=== PATIENT | female | born 1975 | race Caucasian/White ===

== ENCOUNTER 2017-04-14 18:36 | Emergency (ER) | payer BC ==
[2017-04-14 18:47] VITALS: BP 143/80
--- NOTE | 2017-04-14 19:06 | RAD ---
INDICATION: Right hand injury COMPARISON: None TECHNIQUE: AP, lateral, and oblique views were obtained. FINDINGS: There is no acute fracture or dislocation. There is prominent soft tissue swelling over the dorsum of the hand. IMPRESSION: SOFT TISSUE SWELLING.
[2017-04-14] MEDS ORDERED: Ibuprofen TAB* 600 MG PO ONE (19:15)
--- NOTE | 2017-04-14 19:37 | UC ---
Erica Culp Rebecca, scribed for Sharron Pelletier MD on 04/14/17 at 1907 . Upper Extremity HPI - HPI Summary HPI Summary: Pt is a 42 y/o F who presents to [facility] c/o R hand pain and swelling. At 1400 today she "got really upset" and punched a "really hard wood door." Pain began immediately after injury and has been constant since onset. Did not apply ice BALL WINDER. Pain is currently severe, ranked 8/10. Sx aggravated by movement and alleviated by nothing, unchanged by Tylenol. Denies elbow or shoulder pain. Dominant right hand. No h/o hand fractures. no open wounds. - History of Current Complaint Chief Complaint: UCUpperExtremity Stated Complaint: HAND INJURY Time Seen by Provider: 04/14/17 18:46 Hx Obtained From: Patient Hx Last Menstrual Period: 2 wks ago Onset/Duration: Lasting Hours, Still Present Severity Currently: Severe Pain Intensity: 8 Pain Scale Used: 0-10 Numeric Location Of Pain: Is Discrete @ - R hand Aggravating Factor(s): Movement Alleviating Factor(s): Nothing Associated Signs And Symptoms: Positive: Swelling - R hand swelling Related History: Dominant Hand Right - Allergies/Home Medications Allergies/Adverse Reactions: Allergies Allergy/AdvReac Type Severity Reaction Status Date / Time Nalbuphine [From Nubain] Allergy Vomiting Verified 04/14/17 18:47 ENVIROMENTAL Allergy Intermediate SNEEZING, Uncoded 04/14/17 18:47 WATERY EYES. PMH/Surg Hx/FS Hx/Imm Hx - Additional Past Medical History Additional PMH: No PMHx DM, CAD. Previously Healthy: Yes Psychological History: Anxiety, Depression, Other - chronic pain Other Psychological History: depression - Surgical History Surgical History: Yes Surgery Procedure, Year, and Place: . ganglion cyst on wrist. 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 Lives: With Family Alcohol Use: None Substance Use Type: Prescribed Smoking Status (MU): Former Smoker When Did the Patient Quit Smoking/Using Tobacco: 10 years ago Review of Systems Constitutional: Negative Skin: Negative Eyes: Negative ENT: Negative Respiratory: Negative Cardiovascular: Negative Gastrointestinal: Negative Genitourinary: Negative Motor: Negative Neurovascular: Negative Musculoskeletal: Arthralgia - R hand pain and swelling; NEGATIVE: elbow or shoulder pain Neurological: Negative Psychological: Negative All Other Systems Reviewed And Are Negative: Yes Physical Exam Triage Information Reviewed: Yes Appearance: Well-Appearing, Pain Distress - holding right hand, obvious discomfort Vital Signs: Initial Vital Signs Temp 97.8 F 04/14/17 18:43 Pulse 87 04/14/17 18:43 Resp 18 04/14/17 18:43 BP 143/80 04/14/17 18:43 Pulse Ox 99 04/14/17 18:43 Eye Exam: Normal ENT: Positive: Hearing grossly normal Neck exam: Normal Neck: Positive: Supple, Nontender Respiratory Exam: Normal Respiratory: Positive: Normal breath sounds, No respiratory distress, No accessory muscle use Cardiovascular: Positive: Other: - 2+ radial, 2+ ulna CBT <2 sec Musculoskeletal: Positive: Other: - + abduct, extend right shoulder + flex/ext elbow, + supinate/supinate + flex/ext wrist with pain in right dorsum hand + TTP along 4/5 MC - no crepitus + movement of fingers with pain in dorsum hand no crepitus significant edema, ecchymosis dorsum right hand along MC and small area ecchymosis palmar aspect right hand base of 4th Neurological: Positive: Other: - + gross sensaiton throughout fingers Psychological Exam: Normal Psychological: Positive: Normal Response To Family Skin: Positive: Other Procedures - Splinting Location: R hand Hand-Made Type: orthoglass Splint: volar - with a sling given Pre-Proc Neuro Vasc Exam: normal Post-Proc Neuro Vasc Exam: normal, unchanged from pre-exam Diagnostics - Radiology R Hand XR Xray Interpretation: No Acute Changes - SOFT TISSUE SWELLING. Radiology Interpretation Completed By: Radiologist Upper Extremity Course/Dx - Course Course Of Treatment: Pt with pain along dorsum right hand with ecchymosis and edema s/p punch injury. No fx on imaging. placed in volar splint for support. sling. ice. motrin/apap. tramadol (istop consulted_. hand f/u. work note - Differential Dx/Diagnosis Provider Diagnoses: right hand contusion Discharge - Discharge Plan Condition: Stable Disposition: HOME Prescriptions: RX: traMADol TAB* [Ultram*] 50 mg PO BID #10 tab MDD 2 Patient Education Materials: Contusion in Adults (ED) Forms: *Work Release Referrals: Himanshu Freeman MD [Medical Doctor] - Non Staff,Doctor [Primary Care Provider] - Additional Instructions: - Wear splint for comfort and support - elevate your hand to help with swelling and pain - apply ice (wrapped in a towel) 20 minutes at a time, 2-3 times a day - Okay to alternate ibuprofen (advil, motrin) and tylenol every 3 hours for pain. take with food. Okay to take Tramadol for severe pain - Tomorrow, Contact Dr. Freeman, hand surgeon, to schedule a follow-up appointment. The documentation as recorded by the Erica rhodes Rebecca accurately reflects the service I personally performed and the decisions made by , Sharron Pelletier MD.
== END 2017-04-14 19:40 | disposition home or self-care (01) ==
LOC: UCEAST 18:36
DX: S60.221A Contusion of right hand, initial encounter (principal); F32.9 Major depressive disorder, single episode, unspecified; Z87.891 Personal history of nicotine dependence; W22.8XXA Striking against or struck by other objects, initial encounter; Y92.9 Unspecified place or not applicable
CPT/HCPCS: 12053; 99213; A9270-GY; G0463

== ENCOUNTER 2018-07-17 08:32 | Day surgery (SDC) | payer BC, OTHER ==
[~2018-07-17 08:32] MED LIST: Buffered Lidocaine 0.9% SYRIN* 5 ML/SYR SYRINGE INTRADERM ONE; Famotidine IV* 10 MG/ML 2 ML (20 mg) IV ONE; Famotidine IV* 10 MG/ML 2 ML (20 mg) ONE; Morphine VIAL* 10 MG/ML 1 ML VIAL ONE; ceFAZolin 2 GM PREMIX in ORs 2 GM/50 ML BAG IVPB ONE
[2018-07-17] MEDS ORDERED: Bupivacaine 0.5% SDV PF* 30ML VIAL ONE (08:45)
[2018-07-17] MEDS ORDERED: Lidocaine 1% INJ* 10 MG/ML 30 ML SDV ONE (08:45)
[2018-07-17] MEDS ORDERED: Albuterol 2.5 MG/3 ML NEB.SOL* (0.083%) INH ONE (09:38)
[2018-07-17] MEDS ORDERED: Propofol* 10 MG/ML 20 ML BTL IV PUSH ONE (10:39)
[2018-07-17] MEDS ORDERED: Lidocaine 2% PF * 5 ML VIAL ONE (10:39)
[2018-07-17] MEDS ORDERED: Morphine VIAL* 10 MG/ML 1 ML VIAL ONE (10:40)
[2018-07-17] MEDS ORDERED: Ketorolac INJ* 30 MG/ML 1 ML VIAL IV PRN (12:24)
[2018-07-17] MEDS ORDERED: Naloxone* 0.4 MG/ML 1 ML VIAL IV PRN (12:24)
[2018-07-17] MEDS ORDERED: Ondansetron INJ* 2 MG/ML VIAL IV PRN (12:24)
[2018-07-17] MEDS ORDERED: Ondansetron INJ* 2 MG/ML VIAL ONE (12:26)
[2018-07-17] MEDS ORDERED: Ketorolac INJ* 30 MG/ML 1 ML VIAL ONE (12:28)
[2018-07-17] MEDS ORDERED: fentaNYL* 50 MCG/ML 2 ML VIAL (100 MCG VIAL) ONE (12:34)
[2018-07-17] MEDS: fentaNYL* 50 MCG/ML 2 ML VIAL (100 MCG VIAL) IV PRN ×2 (12:35→13:12)
[2018-07-17] MEDS ORDERED: DiMENhydriNATE IV* 50 MG/ML VIAL ONE (12:56)
[2018-07-17 13:22] VITALS: BP 102/82
--- NOTE | 2018-07-18 07:37 | OP ---
DATE OF OPERATION: 07/17/18 - [facility] DATE OF : 75 SURGEON: Himanshu Freeman MD WAITER/WAITRESS BUFFET: EMERSON Carrillo. An assistant finance director was needed for the procedure to aid in retraction. ANESTHESIOLOGIST: Dr. Rodgers. ANESTHESIA: General. PRE-OP DIAGNOSES: 1. Right long finger volar plate injury with distal interphalangeal joint hyperextension as well as radial collateral ligament injury. 2. Probable right long finger partial flexor tendon rupture, insertional rupture. POST-OP DIAGNOSIS: 1. Severe right long finger distal interphalangeal joint volar plate and radial collateral ligament injuries. OPERATIVE PROCEDURE: 1. Right long finger DIP joint volar plate repair. 2. Repari of right long finger DIP joint radial collateral ligament repair. INDICATIONS: Cinthia is 43 years old. She had an injury at work a while back and since then she has had pretty severe hyperextension at the DIP joint. At rest, this is much more hyperextended than the contralateral side. She has difficulty initiating flexion of the DIP joint because of this. I gotten an MRI. The volar plate and radial collateral ligaments were clearly injured. It was difficult to tell whether or not the FDP tendon had partially ruptured at insertion. Certainly she has pain with flexion and so we mainly concern for that. She wanted to proceed with surgery. She understands there is a risk of stiffness and persistent laxity despite surgery. ESTIMATED BLOOD LOSS: 2 mL. COMPLICATIONS: None. FINDINGS: See above and below. DESCRIPTION OF PROCEDURE: Cinthia was seen in the preoperative holding area. The correct side, site, and procedure were identified. We came back to the operating room. The arm was prepped and draped in the usual fashion. A time- out was performed. The arm was exsanguinated with the Esmarch and the tourniquet inflated to 250 mmHg. I made an incision obliquely from the mid portion of the finger tip down towards the mid axial line radially and then brought back more ulnarly proximally. Full thickness flap was raised off of the neurovascular bundle. The distal aspect of the flexor tendon was exposed. The C3 rome was seen. The A5 rome was opened. I examined the insertion of the FDP tendon. It looks like it was intact. The volar plate was clearly ruptured and off of the middle phalanx. Radial collateral ligament was ruptured as well at its insertion. I decided there was nothing new with the flexor tendons, so I retracted it out of the way with the Ragnell retractor. I raised the volar plate as a distally based U flap. I then placed two Arthrex one mini and one niya suture just proximal to the articular surface of the middle phalanx. I used 2-0 and 3-0 FiberWire sutures with each anchor to sew up into the volar plate. This was then tied down creating a block to hyperextension at the DIP joint. I then augmented this with multiple 4-0 Ethibond [id number] sutures around the periphery of the volar plate. Lastly, I sewn up into the radial collateral ligament and brought this down and tied this off, preparing it back to its insertion at the base of the distal phalanx and at the volar plate. At this point, the ability of the finger tip was excellent. It came to 5 degrees of flexion and extended no further. Everything was looking good, so we irrigated out the wound. The skin was closed with 4-0 nylon suture. The finger was placed in an Alumafoam splint with some gentle flexion built in at the DIP joint. The finger was nice and pink upon letting the tourniquet down. She was taken to the recovery room in stable condition. [id number]/[facility] #: [id number] OLIVIA
== END 2018-07-17 13:47 | disposition home or self-care (01) ==
LOC: OR 08:32
PROVIDERS: ATTEND Orthopaedic Surgery Hand Surgery
DX: S66.102A Unspecified injury of flexor muscle, fascia and tendon of right middle finger at wrist and hand level, initial encounter (principal); Z87.891 Personal history of nicotine dependence; E03.9 Hypothyroidism, unspecified; F41.8 Other specified anxiety disorders; W19.XXXA Unspecified fall, initial encounter; Y93.89 Activity, other specified; Y92.89 Other specified places as the place of occurrence of the external cause; Y99.0 Civilian activity done for income or pay; J45.909 Unspecified asthma, uncomplicated
CPT/HCPCS: 81025; C1713; J0690; J1240; J1885; J2270; J2405; J2704; J3010

== ENCOUNTER 2018-11-02 09:12 | Emergency (ER) | payer BC, OTHER ==
[2018-11-02 09:43] VITALS: BP 142/90
[2018-11-02 10:03] LABS: Influenza A Molecular NEGATIVE (Negative); Influenza B Molecular NEGATIVE (Negative)
--- NOTE | 2018-11-02 10:06 | UC ---
Respiratory Complaint HPI - HPI Summary HPI Summary: cough x 4 days chest congestion , nasal congestion , pnd fever, chills, body aches, sore throat, abdominal pain with nausea and vomiting no diarrhea - History of Current Complaint Chief Complaint: UCGeneralIllness Stated Complaint: CONGESTION,STOMACH ACHE,BODY ACHES,COUGH Time Seen by Provider: 11/02/18 09:28 Hx Obtained From: Patient Hx Last Menstrual Period: 2 wks ago ?: No Onset/Duration: Gradual Onset, Lasting Days - 4, Still Present Timing: Constant Severity Initially: Moderate Severity Currently: Moderate Pain Intensity: 7 Character: Cough: Nonproductive Aggravating Factors: Exertion, Deep Breaths Alleviating Factors: Nothing Associated Signs And Symptoms: Positive: Fever, Chills, URI, Nasal Congestion. Negative: Dyspnea, Pleuritic Chest Pain, Wheezing, Hemoptysis, Dizziness, Calf Pain, Calf Swelling - Allergies/Home Medications Allergies/Adverse Reactions: Allergies Allergy/AdvReac Type Severity Reaction Status Date / Time nalbuphine [From Nubain] Allergy Severe Vomiting Verified 11/02/18 09:43 ENVIROMENTAL Allergy Intermediate SNEEZING, Uncoded 11/02/18 09:43 WATERY EYES. PMH/Surg Hx/FS Hx/Imm Hx Previously Healthy: Yes - Surgical History Surgical History: Yes Surgery Procedure, Year, and Place: . ganglion cyst on wrist. septoplasty 2018. tonsillectomy 1992. R middle finger - Family History Known Family History: Positive: Hypertension, Respiratory Disease - COPD (father ), Other - Prostate CA (father), malignant melanoma (sister) - Social History Alcohol Use: None Substance Use Type: None Smoking Status (MU): Former Smoker When Did the Patient Quit Smoking/Using Tobacco: 10 years ago Review of Systems All Other Systems Reviewed And Are Negative: Yes Constitutional: Positive: Fever, Chills, Fatigue Skin: Positive: Negative Eyes: Positive: Negative ENT: Positive: Sore Throat, Nasal Discharge Respiratory: Positive: Cough Cardiovascular: Positive: Negative Gastrointestinal: Positive: Abdominal Pain, Vomiting, Nausea Is Patient Immunocompromised?: No Physical Exam Triage Information Reviewed: Yes Appearance: Well-Nourished, Pain Distress Vital Signs: Initial Vital Signs Temp 99.5 F 11/02/18 09:39 Pulse 100 11/02/18 09:39 Resp 20 02/21/19 09:39 BP 142/90 11/02/18 09:39 Pulse Ox 98 11/02/18 09:39 Vital Signs Reviewed: Yes Eyes: Positive: Conjunctiva Clear ENT: Positive: Normal ENT inspection, Hearing grossly normal, Pharyngeal erythema, Nasal congestion Neck: Positive: Supple, Nontender, No Lymphadenopathy Respiratory: Positive: Chest non-tender, Lungs clear, Normal breath sounds Cardiovascular: Positive: RRR, No Murmur, Pulses Normal Abdominal Exam: Normal Abdomen Description: Positive: Nontender, Soft. Negative: CVA Tenderness (R), CVA Tenderness (L), Distended, Guarding Musculoskeletal Exam: Normal UC Diagnostic Evaluation - Laboratory O2 Sat by Pulse Oximetry: 98 Respiratory Course/Dx - Differential Dx/Diagnosis Provider Diagnosis: Viral illness Discharge - Sign-Out/Discharge Documenting (check all that apply): Patient Departure All imaging exams completed and their final reports reviewed: No Studies - Discharge Plan Condition: Stable Disposition: HOME Patient Education Materials: Viral Syndrome (ED) Referrals: Con Desir MD [Primary Care Provider] - 7 Days - Billing Disposition and Condition Condition: STABLE Disposition: Home
== END 2018-11-02 10:18 | disposition home or self-care (01) ==
LOC: UCCORT 09:12
DX: B34.9 Viral infection, unspecified (principal); R05 Cough; R09.89 Other specified symptoms and signs involving the circulatory and respiratory systems; R09.81 Nasal congestion; R09.82 Postnasal drip; J02.9 Acute pharyngitis, unspecified; R10.9 Unspecified abdominal pain; R11.2 Nausea with vomiting, unspecified; R52 Pain, unspecified; Z88.8 Allergy status to other drugs, medicaments and biological substances; Z91.09 Other allergy status, other than to drugs and biological substances; Z87.891 Personal history of nicotine dependence
CPT/HCPCS: 99212; G0463

== ENCOUNTER 2018-12-05 08:42 | Emergency (ER) | payer BC ==
--- OUTSIDE RECORDS SUMMARY | 2018-12-05 08:50 | XMS REPORT | Continuity of Care Document ---
:1975 External Reference #:[id number] Author Name Amanda Benson Care Team Providers Name Role Phone Con Desir MD Primary Care Physician Unavailable Payers Date Identification Numbers Payment Provider Subscriber Onset: 2018 Policy Number: [id number] [employer] [employer] Name: fax: [phone] 33 Ronnie WebsterTanisha salmon 204 PayID: [id number] Onset: 05/14/2018 Policy Number: [id number] [facility] PayID: [id number] [place] [address] Advance Directives Description No Information Available Problems Date Description Provider Status Onset: 05/19/2018 Unspecified injury of flexor muscle, Himanshu Freeman MD Active fascia and tendon of right middle finger at wrist and hand level, initial encounter Family History Date Family Member(s) Observation Comments General Prostate Cancer and COPD-father General Hypothyroidism mother General sister-factor 5 leiden positve,malignant melanoma General maternal grandfather-COPD.Lung Cancer Social History Type Date Description Comments Sex Unknown 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 Tobacco Use Start: Unknown Never Smoked Cigarettes ETOH Use Never used alcohol Tobacco Use Start: Unknown End: Patient is a former smoker Quit-1997 Unknown Smoking Status Reviewed: 11/14/18 Patient is a former smoker Quit-1997 Exercise Type/Frequency Exercises regularly Allergies, Adverse Reactions, Alerts Date Description Reaction Status Severity Comments 05/19/2018 Nalbuphine Active Excessive vomiting 05/19/2018 Environmental-Everthing In The Active Environment Medications Medication Date Status Form Strength Qnty SIG Indications Ordering Provider Levothyroxine Active Tablets 88mcg 1 by Unknown Sodium 000 mouth every day Lamictal 0 Active Tablets 200mg 1 by Unknown 000 mouth at bedtime Ambien /0 Active Tablets 10mg takes 1 Unknown 000 tablet by mouth at bedime Seroquel 0 Active Tablets 200mg 1 tab by Unknown 000 mouth every night at bedtime Acetaminophen 000 Active Tablets 500mg 2 by Unknown 000 mouth as needed Xanax 0 Active Tablets 0.5mg 1 by Unknown 000 mouth every 8 hours as needed for extreme anxiety Tramadol HCL Hx Tablets 50mg 30tabs 1-2 Himanshu 018 - tablets MD Pete by mouth 019 every 6 hours as needed pain Immunizations Description No Information Available Vital Signs Date Vital Result Comment 11/14/2018 11:15am Height 71 inches 5'11" Heart Rate 82 /min BP Systolic 128 mmHg BP Diastolic 82 mmHg Respiratory Rate 18 /min Body Temperature 97.6 F Pain Level 2 09/29/2018 2:53pm Height 71 inches 5'11" Weight 200.00 lb Heart Rate 80 /min BP Systolic Sitting 116 mmHg BP Diastolic Sitting 86 mmHg Respiratory Rate 18 /min Pain Level 0 BMI (Body Mass Index) 27.9 kg/m2 08/25/2018 2:10pm Height 71 inches 5'11" Heart Rate 80 /min BP Systolic Sitting 112 mmHg BP Diastolic Sitting 84 mmHg Respiratory Rate 20 /min Pain Level 0 07/28/2018 1:37pm Height 71 inches 5'11" Heart Rate 80 /min BP Systolic 124 mmHg BP Diastolic 80 mmHg Respiratory Rate 20 /min Body Temperature 99.4 F Pain Level 0 07/14/2018 8:56am Height 71 inches 5'11" Weight 200.00 lb BP Systolic Sitting 124 mmHg BP Diastolic Sitting 70 mmHg Respiratory Rate 16 /min Pain Level 3 BMI (Body Mass Index) 27.9 kg/m2 06/30/2018 9:38am Height 71 inches 5'11" Weight 200.00 lb BP Systolic Sitting 110 mmHg BP Diastolic Sitting 64 mmHg Respiratory Rate 16 /min Body Temperature 100.0 F flu shot Pain Level 1 BMI (Body Mass Index) 27.9 kg/m2 06/09/2018 8:32am Height 71 inches 5'11" Weight 200.00 lb Heart Rate 86 /min BP Systolic Sitting 150 mmHg Rue lg cuff BP Diastolic Sitting 86 mmHg Rue lg cuff Pain Level 6 BMI (Body Mass Index) 27.9 kg/m2 05/30/2018 2:19pm Height 71 inches 5'11" Weight 211.00 lb Heart Rate 84 /min Respiratory Rate 16 /min Body Temperature 98.0 F Pain Level 2 BMI (Body Mass Index) 29.4 kg/m2 05/19/2018 3:48pm Height 71 inches 5'11" Weight 211.00 lb Heart Rate 68 /min BP Systolic 126 mmHg BP Diastolic 98 mmHg Respiratory Rate 16 /min Pain Level 4 O2 % BldC Oximetry 98 % BMI (Body Mass Index) 29.4 kg/m2 Results Description No Information Available Procedures Date Code Description Status 07/17/2018 79874 Reconstruct Finger Volar Plate IP JT Completed 07/17/2018 60885 Reconstruct Finger Volar Plate IP JT Completed 07/17/2018 33394 Repair Of Collateral Ligament Metacarpophalangeal Or Completed Interphl JT 07/17/2018 41055 Repair Of Collateral Ligament Metacarpophalangeal Or Completed Interphl JT 05/19/2018 56025 Rad Exam; Fingers Completed 05/19/2018 18713 Short Arm Splint Application Completed 05/19/2018 31573 Short Arm Splint Application Completed Encounters Type Date Location Provider Dx Diagnosis Office Visit 07/14/2018 Orthopedic Himanshu Freeman S66.102D Unsp inj flxr 8:15a [facility]/fasc/tend r [facility] fngr at [facility], subs Office Visit 06/09/2018 Orthopedic Himanshu Freeman S66.102D Unsp inj flxr 8:15a [facility]/fasc/tend r [place] [facility] at [facility], subs Office Visit 05/30/2018 Orthopedic Himanshu Freeman S66.102D Unsp inj flxr 2:00p [facility] [place] [facility]/fasc/tend r mid fngr at [facility], subs S66.102D Unsp inj flxr musc/fasc/tend r mid fngr at [facility], subs Office Visit 05/19/2018 Orthopedic Himanshu S66.102A Unsp inj flxr 3:00p [facility] steven Mares/fasc/tend r AT [facility] fngr at [facility], init S66.102A Unsp inj flxr musc/fasc/tend r mid fngr at [facility], init Plan of Treatment 09/29/2018 - Himanshu Freeman, [id number] Unspecified sprain of right middle finger, subsequent encounFollow up:Follow up: As needed
[2018-12-05 08:58] VITALS: BP 102/78
[2018-12-05] MEDS ORDERED: Ketorolac INJ* 60 MG/2 ML VIAL IM ONE (10:04)
--- NOTE | 2018-12-05 10:40 | UC ---
Abdominal Pain Female HPI - HPI Summary HPI Summary: left flank pain x 1 days pain is sharp , 8 out of 10 , intermittent radiating to mid abdominal area better with heat , not sure what makes if worse no fever, no chills, no n/v/d/c , no urinary sx - History of Current Complaint Chief Complaint: UCAbdominalPain Stated Complaint: ABDOMINAL PAIN Time Seen by Provider: 12/05/18 08:59 Hx Obtained From: Patient Hx Last Menstrual Period: 11/24/18 ?: No Onset/Duration: Gradual Onset, Lasting Days - 1, Still Present Timing: Constant Severity Initially: Severe Severity Currently: Severe Pain Intensity: 8 Location: Other - left flank Radiates: Yes Radiates to: Other - mid abd Character: Sharp Aggravating Factor(s): Nothing Alleviating Factor(s): Other: - heat Associated Signs and Symptoms: Positive: Negative. Negative: Diaphoresis, Fever , Cough, Chest Pain, Dizzy, Back Pain, Constipation, Blood in Stool, Urinary Symptoms, Decreased Appetite, Vaginal Bleeding, Vaginal Discharge, Nausea, Vomiting, Diarrhea Allergies/Adverse Reactions: Allergies Allergy/AdvReac Type Severity Reaction Status Date / Time nalbuphine [From Nubain] Allergy Severe Vomiting Verified 12/05/18 08:58 ENVIROMENTAL Allergy Intermediate SNEEZING, Uncoded 12/05/18 08:58 WATERY EYES. Home Medications: Home Medications Acetaminophen [Acetaminophen Extra Strength] 500 mg PO TID PRN 12/05/18 [ History Confirmed 12/05/18] lamoTRIgine TAB(*) [LaMICtal TAB(*)] 200 mg PO BEDTIME 12/05/18 [History Confirmed 12/05/18] PMH/Surg Hx/FS Hx/Imm Hx Endocrine History: Hypothyroidism Respiratory History: Asthma - Surgical History Surgical History: Yes Surgery Procedure, Year, and Place: . ganglion cyst on wrist. septoplasty 2018. tonsillectomy 1992. R middle finger - Family History Known Family History: Positive: Hypertension, Respiratory Disease - COPD (father ), Other - Prostate CA (father), malignant melanoma (sister) - Social History Alcohol Use: None Substance Use Type: None Smoking Status (MU): Former Smoker When Did the Patient Quit Smoking/Using Tobacco: 10 years ago Review of Systems All Other Systems Reviewed And Are Negative: Yes Constitutional: Positive: Negative Skin: Positive: Negative Eyes: Positive: Negative ENT: Positive: Negative Respiratory: Positive: Negative Cardiovascular: Positive: Negative Gastrointestinal: Positive: Abdominal Pain Genitourinary: Positive: Negative Is Patient Immunocompromised?: No Physical Exam Triage Information Reviewed: Yes Appearance: Well-Appearing, Well-Nourished, Pain Distress Vital Signs: Initial Vital Signs Temp 98.8 F 12/05/18 08:49 Pulse 77 12/05/18 08:49 Resp 18 12/05/18 08:49 BP 102/78 12/05/18 08:49 Pulse Ox 100 12/05/18 08:49 Vital Signs Reviewed: Yes Eye Exam: Normal Eyes: Positive: Conjunctiva Clear ENT: Positive: Normal ENT inspection, Hearing grossly normal, Pharynx normal Neck: Positive: Supple, Nontender, No Lymphadenopathy Respiratory Exam: Normal Respiratory: Positive: Chest non-tender, Lungs clear, Normal breath sounds Cardiovascular: Positive: RRR, No Murmur, Pulses Normal Abdomen Description: Positive: Nontender, Soft. Negative: CVA Tenderness (R), CVA Tenderness (L), Distended, Guarding Bowel Sounds: Positive: Present Diagnostics - Radiology No standard instances Summary of Radiographic Findings: abdominal ct report : IMPRESSION: 1. NO RENAL CALCULI OR EVIDENCE FOR HYDRONEPHROSIS. 2. 2.4 CM LEFT OVARIAN CYST. 3. MILD HEPATOMEGALY. Abd Pain Female Course/Dx - Differential Dx/Diagnosis Provider Diagnosis: Left flank pain Discharge - Sign-Out/Discharge Documenting (check all that apply): Patient Departure All imaging exams completed and their final reports reviewed: Yes - Discharge Plan Condition: Stable Disposition: HOME Prescriptions: Ketorolac TAB * [Toradol TAB *] 10 mg PO Q6H PRN #20 tab PRN Reason: Pain Patient Education Materials: Acute Abdominal Pain (ED) Referrals: Con Desir MD [Primary Care Provider] - 5 Days Additional Instructions: ct report : IMPRESSION: 1. NO RENAL CALCULI OR EVIDENCE FOR HYDRONEPHROSIS. 2. 2.4 CM LEFT OVARIAN CYST. 3. MILD HEPATOMEGALY. no renal stones noted may passed the stone cont. with rest, increase fluid, please call the office if having any flank rash / ? shingles follow up with your pcp if not improving - Billing Disposition and Condition Condition: STABLE Disposition: Home
== END 2018-12-05 10:58 | disposition home or self-care (01) ==
LOC: UCCORT 08:42
DX: R10.9 Unspecified abdominal pain (principal); J45.909 Unspecified asthma, uncomplicated; Z88.5 Allergy status to narcotic agent; Z91.09 Other allergy status, other than to drugs and biological substances; Z87.891 Personal history of nicotine dependence
CPT/HCPCS: 74176; 81003; 96372; 99212; G0463; J1885

== ENCOUNTER 2019-01-25 07:37 | Day surgery (SDC) | payer BC, OTHER ==
[~2019-01-25 07:37] MED LIST changes: -Buffered Lidocaine 0.9% SYRIN* 5 ML/SYR SYRINGE INTRADERM ONE; +Buffered Lidocaine 1% SYRIN* 1 ML/SYRINGE INTRADERM ONE; -Famotidine IV* 10 MG/ML 2 ML (20 mg) IV ONE; -Famotidine IV* 10 MG/ML 2 ML (20 mg) ONE; +Lactated Ringers 1000 ML Bag* 1,000 ML IV SCH; -Morphine VIAL* 10 MG/ML 1 ML VIAL ONE; -ceFAZolin 2 GM PREMIX in ORs 2 GM/50 ML BAG IVPB ONE
[2019-01-25] MEDS ORDERED: fentaNYL* 50 MCG/ML 2 ML VIAL (100 MCG VIAL) ONE (08:30)
[2019-01-25] MEDS ORDERED: Midazolam* 1 MG/ML 2 ML VIAL (2 MG) ONE (08:30)
[2019-01-25] MEDS ORDERED: Ondansetron INJ* 2 MG/ML VIAL ONE (09:02)
[2019-01-25 09:54] VITALS: BP 132/81
[2019-01-25] MEDS ORDERED: Bupivacaine 0.25% SDV PF* 10 ML VIAL INJ ONE (10:02)
[2019-01-25] MEDS ORDERED: Dexamethasone IV* 4 MG/ML 1 ML (4 MG) ONE (10:14)
[2019-01-25] MEDS ORDERED: Naloxone* 0.4 MG/ML 1 ML VIAL IV PRN (11:17)
--- NOTE | 2019-01-25 11:46 | OP ---
DATE OF OPERATION: 01/25/19 - [facility] DATE OF : 75 SURGEON: Himanshu Freeman MD GLASSWARE DEFECT REPAIRER: EMERSON Carrillo. ANESTHESIOLOGIST: Dr. Huggins. ANESTHESIA: Local MAC. PRE-OP DIAGNOSIS: Right middle finger soft tissue mass. POST-OP DIAGNOSIS: Right middle finger soft tissue mass. OPERATIVE PROCEDURE: Removal of right middle finger soft tissue mass. INDICATIONS: Cinthia had the aforementioned mass, it has been slowly getting bigger. We talked about risks and benefits. She wanted to have it excised. ESTIMATED BLOOD LOSS: 2 mL. COMPLICATIONS: None. FINDINGS: The mass did not look cystic, it looked more solid. It was definitely a soft tissue mass just off the radial aspect of the PIP joint. DESCRIPTION OF PROCEDURE: Cinthia was seen in the preoperative holding area. The correct side, site, and procedure were identified. We come back to the operating room. The arm was prepped and draped in the usual fashion. I had performed a digital block. A time-out was performed. A finger tourniquet was placed on the finger and this was left on proximally throughout the case. I made a 1 cm curvilinear incision over the radial aspect of the PIP joint. Dissection was carried down and full-thickness flaps were raised off of the soft tissue mass. Marginal incision was performed. It was excised in it is entirety, handed off as specimen. I then cauterized the base of the mass. Again, it did not look cystic, but looked solid. The wound was irrigated out. The wound was closed with 4-0 nylon suture. Soft dressing was applied and she was taken to the recovery room in stable condition. [id number]/[facility] #: [id number] [facility]
[2019-01-25] MEDS ORDERED: Propofol* 10 MG/ML 20 ML BTL ONE (11:56)
== END 2019-01-25 10:03 | disposition home or self-care (01) ==
LOC: OREAST 07:37
PROVIDERS: ATTEND Orthopaedic Surgery Hand Surgery
DX: M65.841 Other synovitis and tenosynovitis, right hand (principal); Z87.891 Personal history of nicotine dependence; E03.9 Hypothyroidism, unspecified; F41.8 Other specified anxiety disorders; J45.990 Exercise induced bronchospasm
CPT/HCPCS: 81025; 88304; J1100; J2250; J2405; J2704; J3010; J3490

== ENCOUNTER 2019-07-05 14:49 | Emergency (ER) | payer BC, OTHER ==
--- OUTSIDE RECORDS SUMMARY | 2019-07-05 15:34 | XMS REPORT | Summary of Care ---
:1975 Author Organization [facility] Address [address] [place] [address] Care Team Providers Name Role Phone Con Desir MD Primary Care Provider Reason for Referral MRI/CAT/PET Scan (Routine) Status Reason Specialty Diagnoses / Referred By Referred To Procedures Contact Contact Pending Review Diagnoses Left flank pain Con Desir MD Procedures MR THORACIC SPINE WO CONTRAST [address] [place] [address] Reason for Visit Reason Comments Follow Up pt presents for follow up from previous visit Encounter Details Date Type Department Care Team Description 06/01/2019 Office Visit [facility] Con Desir MD Left flank pain (Primary Dx); Practice [address] [facility] Gastroesophageal reflux disease with esophagitis [address] [place], [place] [id number] [place] [address] [phone] Allergies Active Allergy Reactions Severity Noted Date Comments Ct Dye Anaphylaxis High 12/15/2018 Environmental Respiratory Reaction 02/11/2014 Sneezing, watery eyes Pchsrbcast-Ypgfscrskx-Yry GI Reaction 12/31/2013 pylpara documented as of this encounter (statuses as of 06/03/2019) Medications Medication Sig Dispensed Refills Start Date End Date Status LamoTRIgine Take 250 mg by 0 Active (LAMICTAL XR) 250 mouth DAILY. MG Oral TABLET SR Dr. Zamudio in 24 HR Syr ALPRAZolam (XANAX) Take 0.5 mg by 0 Active 0.5 MG Oral Tab mouth EVERY BEDTIME NEEDED for anxiety. Dr. Zamudio ondansetron Take 4 mg by 0 12/08/2018 Active (ZOFRAN) 4 MG Oral mouth EVERY TabIndications: EIGHT HOURS Nausea and NEEDED for Vomiting Nausea/Vomitin g. Indications: Nausea and Vomiting BACLOFEN PO Take 10 mg by 0 12/08/2018 Active mouth THREE TIMES DAILY NEEDED. quetiapine Take 200 mg by 0 Active (SEROQUEL) 200 MG mouth EVERY Oral Tab BEDTIME. hyoscyamine Take 0.125 mg 120 Tab 0 01/04/2019 Active (LEVSIN) 0.125 MG by mouth EVERY Oral Tab FOUR HOURS NEEDED for Cramping. pantoprazole Take 1 Tab by 90 Tab 1 01/19/2019 Active (PROTONIX) 40 MG mouth DAILY. Oral Tab EC sucralfate Take 1 Tab by 60 Tab 1 04/12/2019 Active (CARAFATE) 1 GM mouth THREE Oral Tab TIMES DAILY. levothyroxine TAKE 1 TABLET 90 Tab 1 05/08/2019 Active (SYNTHROID) 88 MCG BEFORE Oral BREAKFAST TabIndications: (NEED LABS Pituitary tumor, DONE) Thyroid disorder HYDROcodone-acetam Take 1 Tab by 30 Tab 0 06/01/2019 Active inophen (NORCO) mouth EVERY 5-325 MG Oral SIX HOURS TabIndications: NEEDED (pain). Pain Max Daily Amount: 3 Tabs. Indications: Pain HYDROcodone-acetam Take 1 Tab by 20 Tab 0 02/13/2019 Discontinued inophen (NORCO) mouth EVERY 9 (Reorder) 5-325 MG Oral SIX HOURS TabIndications: NEEDED (pain). Pain Max Daily Amount: 3 Tabs. Indications: Pain documented as of this encounter (statuses as of 06/03/2019) Active Problems Problem Noted Date Pituitary tumor 02/11/2014 Overview: Angioma, last visit to endocrinology in 2011, formerly on bromocriptine Mood disorder 12/31/2013 Overview: bipolar disorder, Lamictal since 2009 Thyroid disorder 12/31/2013 Overview: family history, on thyroid replacement since 2007 documented as of this encounter (statuses as of 06/03/2019) Immunizations Name Administration Dates Next Due Influenza (IM) Preservative Free 07/13/2013 TDAP Vaccine 07/13/2012 documented as of this encounter Social History Tobacco Use Types Packs/Day Years Used Date Never Smoker Smokeless Tobacco: Never Used Alcohol Use Drinks/Week oz/Week Comments No 0 Standard drinks or equivalent 0.0 Sex Assigned at Date Recorded Not on file Job Start Date Occupation Industry Not on file Not on file Not on file Travel History Travel Start Travel End No recent travel history available. documented as of this encounter Last Filed Vital Signs Vital Sign Reading Time Taken Comments Blood Pressure 102/74 06/01/2019 1:54 PM EDT Pulse 80 06/01/2019 1:54 PM EDT Temperature - - Respiratory Rate - - Oxygen Saturation 94% 06/01/2019 1:54 PM EDT Inhaled Oxygen Concentration - - Weight 95.3 kg (210 lb) 06/01/2019 1:54 PM EDT Height 182.9 cm (6') 06/01/2019 1:54 PM EDT Body Mass Index 28.48 06/01/2019 1:54 PM EDT documented in this encounter Progress Notes Con Desir MD - 06/01/2019 2:00 PM EDT PATIENT: Cinthia Gutierrez : 1975 DATE OF SERVICE: 06/01/2019 CHIEF COMPLAINT: Chief Complaint Patient presents with Follow Up pt presents for follow up from previous visit Subjective HISTORY OF PRESENT ILLNESS: Cinthia Gutierrez is a 44-y.o. female. She still has Left sided abd pain . It is most days of the week , she has had CT scan and scopes .Sit is worse than stand , bed is ok she has to take an occasional norco for the pain . She has had aCT scan at [facility] when in hospital and endoscopies. She is on carafate which she says helps but the pain is in the left flankalso protonix. Her EGD showed metaplasia . Not think the levsin helps Past Medical History: Diagnosis Date Bipolar affective (HCC) Esophagitis, [place] grade A 2019 EGD gastic bx with metaplasia SAM (generalized anxiety disorder) Hemorrhoid 2019 Hypothyroid Pituitary adenoma (HCC) Family History Problem Relation Age of Onset Thyroid Mother Prostate Cancer Father Skin Cancer Sister melanoma Thyroid Maternal Grandmother Current Outpatient Medications Medication Sig ALPRAZolam (XANAX) 0.5 MG Oral Tab Take 0.5 mg by mouth EVERY BEDTIME NEEDED for anxiety. Dr. Zamudio BACLOFEN PO Take 10 mg by mouth THREE TIMES DAILY NEEDED. HYDROcodone-acetaminophen (NORCO) 5-325 MG Oral Tab Take 1 Tab by mouth EVERY SIX HOURS NEEDED (pain). Max Daily Amount: 3 Tabs. Indications: Pain hyoscyamine (LEVSIN) 0.125 MG Oral Tab Take 0.125 mg by mouth EVERY FOUR HOURS NEEDED forCramping. LamoTRIgine (LAMICTAL XR) 250 MG Oral TABLET SR 24 HR Take 250 mg by mouth DAILY. Dr. Zamudio in [facility] levothyroxine (SYNTHROID) 88 MCG Oral Tab TAKE 1 TABLET BEFORE BREAKFAST (NEED LABS DONE) ondansetron (ZOFRAN) 4 MG Oral Tab Take 4 mg by mouth EVERY EIGHT HOURS NEEDED for Nausea/Vomiting. Indications: Nausea and Vomiting pantoprazole (PROTONIX) 40 MG Oral Tab EC Take 1 Tab by mouth DAILY. quetiapine (SEROQUEL) 200 MG Oral Tab Take 200 mg by mouth EVERY BEDTIME. sucralfate (CARAFATE) 1 GM Oral Tab Take 1 Tab by mouth THREE TIMES DAILY. No current facility-administered medications for this visit. Allergies Allergen Reactions Contrast [Ct Dye] Anaphylaxis Environmental Respiratory Reaction Sneezing, watery eyes Nalbuphine Hcl [Qovjmszdha-Hnzitunhrk-Gccvymhhom] GI Reaction Social History Socioeconomic History Marital status: Spouse name: Not on file Number of children: Not on file Years of education: Not on file Highest education level: Not on file Occupational History Not on file Social Needs Financial resource strain: Not on file Food insecurity: Worry: Not on file Inability: Not on file Transportation needs: Medical: Not on file Non-medical: Not on file Tobacco Use Smoking status: Never Smoker Smokeless tobacco: Never Used Substance and Sexual Activity Alcohol use: No Alcohol/week: 0.0 standard drinks Drug use: No Sexual activity: Yes Partners: Male Lifestyle Physical activity: Days per week: Not on file Minutes per session: Not on file Stress: Not on file Relationships Social connections: Talks on phone: Not on file Gets together: Not on file Attends sabianism service: Not on file Active member of club or organization: Not on file Attends meetings of clubs or organizations: Not on file Relationship status: Not on file Intimate partner violence: Fear of current or ex partner: Not on file Emotionally abused: Not on file Physically abused: Not on file Forced sexual activity: Not on file Other Topics Concern Back Care Not Asked Bike Helmet Not Asked Blood Transfusions Not Asked Caffeine Concern Not Asked Exercise Yes Comment: walking, jogging Hobby Hazards Not Asked International Travel Not Asked Service Not Asked Occupational Exposure Not Asked Seat Belt Not Asked Self-Exams Not Asked Sleep Concern Not Asked Special Diet Not Asked Stress Concern Not Asked Weight Concern Not Asked Social History Narrative , 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 Outdoor chicken Over the last 2 weeks, have you been feeling down, depressed, anxious, or hopeless?: 0 Over the past 2 weeks, have you felt little interest or pleasure in doing things ?: 0 REVIEW OF SYSTEMS: Review of Systems Musculoskeletal: Dr Gupta does trigger point injections and baclofen Psychiatric/Behavioral: Sees psych for her xanax lamictalseroquel Objective PHYSICAL EXAM: VITALS: BP 102/74 (BP Location: Right arm, Patient Position: Sitting) | Pulse 80 | Ht 6' (1.829 m) | Wt 210 lb (95.3 kg) | SpO2 94% | BMI 28.48 kg/m Body mass index is 28.48 kg/m. Physical Exam Constitutional: No distress. Cardiovascular: Normal rate and regular rhythm. Pulmonary/Chest: Effort normal. No respiratory distress. Abdominal: Soft. She exhibits no distension and no mass. There is tenderness. There is no guarding. Neurological: Non focal Psychiatric: Dress and hygiene good Good eye contact Thoughts and speech normal Affect Appropriate Mood normal Vitals reviewed. ASSESSMENT / IMPRESSION: ICD-9-CM ICD-10-CM 1. Left flank pain besides repeating CT the only other test I can think of is mr thoracic spine to see if the pain is coming out of the back . Also consider gabapentin 789.09 R10.9 MR THORACIC SPINE WO CONTRAST 2. Gastroesophageal reflux disease with esophagitis Not explain the left flank pain 530.11 K21.0 Plan Author: Con Desir MD 06/01/2019 14:19 documented in this encounter Plan of Treatment Name Type Priority Associated Diagnoses Order Schedule MR THORACIC SPINE WO Imaging Routine Left flank pain Expected: 06/03/2019, CONTRAST Expires: 06/02/2020 Health Maintenance Due Date Last Done Comments MAMMOGRAM (SCREENING) 12/02/2016 12/03/2015 PAP SMEAR 10/13/2017 10/13/2014 (Previously completed) INFLUENZA VACCINE (#1) 2019 07/13/2013 DIABETES SCREENING 12/19/2019 12/18/2018, 06/23/2015 DEPRESSION SCREENING 06/01/2020 06/01/2019 LIPID DISORDER SCREENING 10/26/2023 10/26/2018 HPV IMMUNIZATION SERIES Aged Out No longer eligible based on patient's age to complete this topic MENINGOCOCCAL VACCINE IMM Aged Out No longer eligible based on patient's age to complete this topic PNEUMOCOCCAL 0-64 YRS Aged Out No longer eligible based on patient's age to complete this topic documented as of this encounter Results Not on filedocumented in this encounter Visit Diagnoses Diagnosis Left flank pain - Primary Abdominal pain, unspecified site Gastroesophageal reflux disease with esophagitis documented in this encounter Insurance Payer Benefit Plan / Subscriber ID Effective Dates Phone Address Type Group [employer] xxxxxxxxxxxx 2017-Present [employer] (Work) documented as of this encounter"
[2019-07-05 15:40] VITALS: BP 127/75
--- NOTE | 2019-07-05 16:14 | UC ---
Shoulder Pain HPI - HPI Summary HPI Summary: Per health care administrator: "Muscle spasms in L shoulder for about a week, pt has hx of L shoulder pain who she sees a doctor for, but she hasn't seen that physician in awhile. Pt has a lidocaine patch on it right now that is not helping." -she has had injections on thsi in past w/ Physio in [place]. cant egt appt until Oct. tookl 2 flexiril yesterda w/ o relief. has used tens unit, ice, heat w/o relief. states thats he doesnt have time for a massage. -no numbing/tingling -takes depakote adn seroquel. -asks if we can give her a shot of something here. - History of Current Complaint Chief Complaint: UCBackPain Stated Complaint: LT SHOULDER MUSCLE PAIN Time Seen by Provider: 07/05/19 16:06 Hx Last Menstrual Period: 06/09/19 Pain Intensity: 8 - Allergies/Home Medications Allergies/Adverse Reactions: Allergies Allergy/AdvReac Type Severity Reaction Status Date / Time nalbuphine [From Nubain] AdvReac Severe Vomiting Verified 07/05/19 15:40 ct contrast Allergy Severe Anaphylatic Uncoded 07/05/19 15:40 Shock ENVIROMENTAL Allergy Intermediate SNEEZING, Uncoded 07/05/19 15:40 WATERY EYES. PMH/Surg Hx/FS Hx/Imm Hx Previously Healthy: Yes Psychological History: Other - mood d/o - Surgical History Surgical History: Yes Surgery Procedure, Year, and Place: . ganglion cyst on wrist. septoplasty 2018. tonsillectomy 1992. R middle finger x2 - Family History Known Family History: Positive: Hypertension, Respiratory Disease - COPD (father ), Other - Prostate CA (father), malignant melanoma (sister) - Social History Alcohol Use: None Substance Use Type: None Smoking Status (MU): Former Smoker When Did the Patient Quit Smoking/Using Tobacco: 10 years ago Review of Systems All Other Systems Reviewed And Are Negative: Yes Constitutional: Positive: Negative Skin: Positive: Negative Eyes: Positive: Negative ENT: Positive: Negative Respiratory: Positive: Negative Cardiovascular: Positive: Negative Gastrointestinal: Positive: Negative Genitourinary: Positive: Negative Motor: Positive: Negative Neurovascular: Positive: Negative Musculoskeletal: Positive: Negative Neurological: Positive: Negative Psychological: Positive: Negative Is Patient Immunocompromised?: No Physical Exam Triage Information Reviewed: Yes Appearance: Well-Appearing, No Pain Distress, Well-Nourished Vital Signs: Initial Vital Signs Temp 98.1 F 07/05/19 15:35 Pulse 90 07/05/19 15:35 Resp 16 07/05/19 15:35 BP 127/75 07/05/19 15:35 Pulse Ox 100 07/05/19 15:35 Vital Signs Reviewed: Yes Eye Exam: Normal ENT Exam: Normal Neck exam: Normal Respiratory Exam: Normal Cardiovascular Exam: Normal Abdominal Exam: Normal Musculoskeletal: Positive: ROM Intact, No Edema, Other: - left upper trapeziu s w/ lidocaine patch applied. tender with small spasm. no erythema. no dc. cool o touch Neurological Exam: Normal Neurological: Positive: Muscle Tone Normal, Other: - sernsation intact to light touch Psychological Exam: Normal Skin Exam: Normal Shoulder Course/Dx - Course Course Of Treatment: Muscle spasm left trap. severity of sx seem to outweight exam findings. -change muscle relaxnt to methocarmbomol. stressed massge therapy for treatment - Differential Dx/Diagnosis Differential Diagnosis/HQI/PQRI: Contusion, Sprain, Strain Provider Diagnosis: Muscle spasm Discharge ED - Sign-Out/Discharge Documenting (check all that apply): Patient Departure All imaging exams completed and their final reports reviewed: No Studies - Discharge Plan Condition: Stable Disposition: HOME Prescriptions: Methocarbamol TAB* [Robaxin 500 MG TAB*] 500 mg PO TID PRN 5 Days #15 tab PRN Reason: Pain - Moderate Patient Education Materials: Muscle Spasm (ED) Referrals: Con Desir MD [Primary Care Provider] - 1 Week Additional Instructions: Please stop the cyclobenzaprine and use the methocarbomol instead. The ideal treatment for this is medical massage. Please call your pain doctor to see if they can get you on a cancellation list. Continue with lidocaine patches and tens unit, heat/ice. - Billing Disposition and Condition Condition: STABLE Disposition: Home
== END 2019-07-05 16:42 | disposition home or self-care (01) ==
LOC: UCCORT 14:49
DX: M62.838 Other muscle spasm (principal); Z87.891 Personal history of nicotine dependence; Z88.8 Allergy status to other drugs, medicaments and biological substances; Z91.09 Other allergy status, other than to drugs and biological substances; Z91.041 Radiographic dye allergy status
CPT/HCPCS: 99212; G0463

== ENCOUNTER 2019-11-18 09:53 | Emergency (ER) | payer BC ==
--- OUTSIDE RECORDS SUMMARY | 2019-11-18 10:09 | XMS REPORT | Summary of Care ---
:1975 Author Organization [facility] [address] [address] Care Team Providers Name Role Phone Con Desir Primary Care Provider Reason for Referral Outpatient Procedure (Routine) Status Reason Specialty Diagnoses / Referred By Referred To Procedures Contact Contact Pending Review Diagnoses Gastroesophageal reflux disease with esophagitis Intestinal metaplasia of gastric mucosa Arlene Soliman NP [address] [place] [address] Refer to Department Only (Routine) Status Reason Specialty Diagnoses / Referred By Referred To Procedures Contact Contact Pending Review Gastroenterology Diagnoses Gastroesophageal reflux disease with esophagitis Intestinal metaplasia of gastric mucosa Sina Soliman NP Gastroenterolog 1 FLOOD y/Hepatology [place] [address] [address] [facility] Phone: Road [phone] [place], [place] Fax: [phone] Scheduling Instructions BP 118/78 | Pulse 72 | Temp 98.5 F (36.9 C) | Ht 6' (1.829 m) | Wt 221 lb 8 oz (100.5 kg) | BMI 30.04 kg/m BMI Readings from Last 4 Encounters: 10/02/19 : 30.04 kg/m 08/01/19 : 29.84 kg/m 06/01/19 : 28.48 kg/m 03/08/19 : 28.07 kg/m Controlled Substance Medications: ALPRAZolam and HYDROcodone-acetaminophen Anticoagulant Medications: Psychiatric/Antianxiety Medications: ALPRAZolam and quetiapine Antiretroviral Medications: Reason for Visit Reason Comments Gastroesophageal Reflux Pt. referred by Bruna Castellanos for GERD. Refer to Department Only (Routine) Status Reason Specialty Diagnoses / Referred By Referred To Procedures Contact Contact Pending Review Gastroenterology Diagnoses Gastroesophageal reflux disease with esophagitis Sina Castellanos PA-C Gastroenterolo [address] gy/Hepatology [place], [place] [address] [facility] [address] [address] Phone: [place], [place] [phone] Fax: Encounter Details Date Type Department Care Team Description 10/02/2019 Office Visit Sina Soliman, Gastroesophageal reflux disease with esophagitis (Primary Dx); Gastroenterology/He Arlene Doss NP Intestinal metaplasia of gastric mucosa patology 1 FLO[address]Q [address] [facility] [address] [place] [address] [place] [address] Allergies Active Allergy Reactions Severity Noted Date Comments Ct Dye Anaphylaxis High 12/15/2018 Environmental Respiratory Reaction 02/11/2014 Sneezing, watery eyes Tcmlbmyzad-Jkcflfcpwi-Vqr GI Reaction 12/31/2013 pylpara documented as of this encounter (statuses as of 10/02/2019) Medications Medication Sig Dispensed Refills Start End Date Status Date LamoTRIgine (LAMICTAL Take 250 mg 0 Active XR) 250 MG Oral by mouth TABLET SR [address] Zamudio in [place] ALPRAZolam (XANAX) Take 0.5 mg 0 Active 0.5 MG Oral Tab by mouth EVERY BEDTIME NEEDED for anxiety. Dr. Zamudio ondansetron (ZOFRAN) Take 4 mg by 0 Active 4 MG Oral mouth EVERY 9 TabIndications: EIGHT HOURS Nausea and Vomiting NEEDED for Nausea/Vomiti ng. Indications: Nausea and Vomiting quetiapine (SEROQUEL) Take 200 mg 0 Active 200 MG Oral Tab by mouth EVERY BEDTIME. sucralfate (CARAFATE) Take 1 Tab by 60 Tab 1 Active 1 GM Oral Tab mouth THREE 9 TIMES DAILY. levothyroxine TAKE 1 TABLET 90 Tab 1 Active (SYNTHROID) 88 MCG BEFORE 9 Oral TabIndications: BREAKFAST Pituitary tumor, (NEED LABS Thyroid disorder DONE) Omeprazole 40 MG Oral Take 1 Cap by 30 Cap 3 Active CAPSULE DELAYED mouth DAILY. 0 RELEASE hyoscyamine (LEVSIN) Take 0.125 mg 120 Tab 0 10/02/19 Discontinued 0.125 MG Oral Tab by mouth 06 01 (Patient stopped EVERY FOUR the medication) HOURS NEEDED for Cramping. pantoprazole TAKE 1 TABLET 90 Tab 0 10/02/19 Discontinued (PROTONIX) 40 MG Oral DAILY 06 01 (Alternative Tab ECIndications: Therapy) Gastroesophageal reflux disease with esophagitis HYDROcodone-acetamino Take 1 Tab by 30 Tab 0 10/02/19 Discontinued phen (NORCO) 5-325 MG mouth EVERY 06 01 (Patient stopped Oral TabIndications: SIX HOURS the medication) Pain NEEDED (pain). Max Daily Amount: 3 Tabs. 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, last visit to endocrinology in 2011, formerly on bromocriptine Mood disorder 12/31/2013 Overview: bipolar disorder, Lamictal since 2009 Thyroid disorder 12/31/2013 Overview: family history, on thyroid replacement since 2007 documented as of this encounter (statuses as of 10/02/2019) Immunizations Name Administration Dates Next Due Influenza [...] Sign Reading Time Taken Comments Blood Pressure 118/78 10/02/2019 9:41 AM EST Pulse 72 10/02/2019 9:41 AM EST Temperature 36.9 10/02/2019 9:41 AM EST C (98.5 F) Respiratory Rate - - Oxygen Saturation - - Inhaled Oxygen Concentration - - Weight 100.5 kg (221 lb 8 oz) 10/02/2019 9:41 AM EST Height 182.9 cm (6') 10/02/2019 9:41 AM EST Body Mass Index 30.04 10/02/2019 9:41 AM EST documented in this encounter Patient Instructions Patient InstructionsArlene Soliman NP - 10/02/2019 9:20 AM EST1. Switch to Omeprazole once daily 2. occupational health coordinator Mylanta or Gaviscon at the pharmacy and use as needed when experiencing chest pain and burning in throat 3. Will plan to repeat the upper endoscopy in February 4. Try to get at least 2 doses of the Carafate in, please dissolve tablet in small amount water thendrink 5. Follow up in 1 month 6. Se diet instructions below, avoiding spicy, fatty foods, alcohol and eating close to bedtime Patient Education Ulcer and Gastritis Diet About this topic Ulcers and gastritis are stomach problems that cause pain or burning in your belly. This diet is made up of foods that are not likely to upset your stomach or bowels. What will the results be? Food cannot cause you to have an ulcer, but they can make your signs worse or slow your healing. Thefood on this diet may help your belly pain. What changes to diet are needed? Eat small meals more often during the day. Try to eat more fruits, vegetables, and whole grains. These will help you get more fiber and nutrients, like vitamin C, that may help with healing. Stay away from spicy or seasoned foods. These may make your signs worse. Eat slowly and chew your food carefully. Do not eat for at least 2 hours before going to bed. Who should use this diet? People with ulcers, heartburn, or gastritis should eat this diet. What foods are good to eat? Low-fat milk, yogurt, and other dairy products Dark leafy greens like spinach and kale Vegetables like carrots, broccoli, and sweet potatoes Fruits like apples, strawberries, and blueberries Whole grain breads, crackers, pasta, and oatmeal Lean, tender meats that are steamed, baked, or grilled with no added fat Creamy peanut butter, eggs, and tofu Low-fat ice cream and sherbet What foods should be limited or avoided? You do not need to avoid acidic foods like tomatoes, oranges, pickles, sauerkraut, or hot chilies, but these foods may cause more belly pain or burning. If you have pain after eating a certain food, avoid that food. Fatty dairy foods Spices that may cause pain or burning like black pepper, red pepper, and chili powder Caffeine and drinks like cola, tea, and coffee Decaffeinated coffee and tea Fatty and fried foods Chocolate Beer, wine, and mixed drinks (alcohol) It is not necessary to avoid acidic foods, but eating these foods may cause discomfort. If you have pain after eating a certain food, avoid that food. When do I need to call the doctor? Bloody, dark red, or black stools Throw up that has blood in it or looks like coffee grounds Belly pain that keeps you from eating Helpful tips Stop smoking. Smoking increases your stomach acid and can make you more likely to develop an ulcer. Do not use drugs like ibuprofen (Advil, Motrin) for swelling and pain. These are non-steroidal anti-inflammatory drugs (NSAIDS). Talk to your doctor about other drugs like acetaminophen (Tylenol) to ease your pain. Last Reviewed Date 2019-07-12 Consumer Information Use and Disclaimer This information is not specific medical advice and does not replace information you receive from your health care provider. This is only a brief summary of general information. It does NOT include allinformation about conditions, illnesses, injuries, tests, procedures, treatments, therapies, discharge instructions or life-style choices that may apply to you. You must talk with your health care provider for complete information about your health and treatment options. This information should not beused to decide whether or not to accept your health care providers advice, instructions or recommendations. Only your health care provider has the knowledge and training to provide advice that isright for you. Copyright Copyright 2019 [employer] and its affiliates and/or licensors. All rights reserved. documented in this encounter Progress Notes Arlene Soliman NP - 10/02/2019 9:20 AM EST PATIENT: Cinthia Gutierrez : 1975 DATE OF SERVICE: 10/02/2019 REFERRING PRACTITIONER: Prisca Castellanos PRIMARY CARE PROVIDER: Con Desir CHIEF COMPLAINT: Chief Complaint Patient presents with Gastroesophageal Reflux Pt. referred by Bruna Castellanos for GERD. Subjective HISTORY OF PRESENT ILLNESS: Cinthia Gutierrez is an 44-y.o. female who presents for a follow-up visit with gastroesophageal reflux. Previous visits for this problem: yes, last seen 1 year ago by me. Had an EGD which was positive for reflux esophagitis and gastric biopsy with intestinal metaplasia Medical therapy has included proton pump inhibitors. Current treatment: compliant all of the time. Treatment has been not very effective. Side effects: none. Lifestyle change compliance: compliant most of the time. Patient relates she feels the condition is currently: poorly controlled. Current symptoms: chest pain and heartburn. She has had dysphagia for solids. She has not lost weight. She denies melena, hematochezia, hematemesis, and coffee ground emesis. Denies abdominal pain, fatigue, nausea, vomiting, melena, hamatemesis, hematochezia, constipation, diarrhea, jaundice, fevers, chills, night sweats, weight loss, easy bruising, chest pain, shortness ofbreath, dysuria, hematuria, pyuria, joint pains, acholic stools, dark urine or systemic pruritis. Current Outpatient Medications Medication Sig ALPRAZolam (XANAX) 0.5 MG Oral Tab Take 0.5 mg by mouth EVERY BEDTIME NEEDED for anxiety. Dr. Zamudio LamoTRIgine (LAMICTAL XR) 250 MG Oral TABLET SR 24 HR Take 250 mg by mouth DAILY. Dr. Zamudio in [place] levothyroxine (SYNTHROID) 88 MCG Oral Tab TAKE 1 TABLET BEFORE BREAKFAST (NEED LABS DONE) Omeprazole 40 MG Oral CAPSULE DELAYED RELEASE Take 1 Cap by mouth DAILY. ondansetron (ZOFRAN) 4 MG Oral Tab Take 4 mg by mouth EVERY EIGHT HOURS NEEDED for Nausea/Vomiting. Indications: Nausea and Vomiting quetiapine (SEROQUEL) 200 MG Oral Tab Take 200 mg by mouth EVERY BEDTIME. sucralfate (CARAFATE) 1 GM Oral Tab Take 1 Tab by mouth THREE TIMES DAILY. No current facility-administered medications for this visit. Allergies Allergen Reactions Contrast [Ct Dye] Anaphylaxis Environmental Respiratory Reaction Sneezing, watery eyes Nalbuphine Hcl [Amgipjbkxm-Nevecqcdor-Yjuxsapmgj] GI Reaction REVIEW OF SYSTEMS: All remaining review of systems was negative except for as noted in the history of present illness/subjective. Objective OBJECTIVE: VITALS: BP 118/78 | Pulse 72 | Temp 98.5 F (36.9 C) | Ht 6' (1.829 m ) | Wt 221 lb 8 oz (100.5 kg) | BMI 30.04 kg/m Body mass index is 30.04 kg/m. GENERAL: alert, oriented, no acute distress. HEENT: No scleral icterus, MMM Psych: Affect normal Neck: no lymphadenopathy LUNGS: clear to auscultation bilaterally. HEART: regular rhythm, no murmurs, no gallops, no rubs. ABDOMEN: general exam: soft, epigastrium -tender, non-distended, without masses or organomegaly, normal active bowel sounds, Jimenez's sign negative. Extrmities: no edema Skin: clear Neuro: gait normal, a&o x 3 RECTAL: exam deferred. IMPRESSION: ICD-9-CM ICD-10-CM 1. Gastroesophageal reflux disease with esophagitis 530.11 K21.0 REFER TO GI REFER TO GI EGD (FLOOD / NON FLOOD) 2. Intestinal metaplasia of gastric mucosa 537.89 K31.89 REFER TO GI EGD (FLOOD / NON FLOOD) Gastroesophageal reflux disease, needs improvement. Plan PLAN: Patient Instructions 1. Switch to Omeprazole once daily 2. occupational health coordinator Mylanta or Gaviscon at the pharmacy and use as needed when experiencing chest pain and burning in throat 3. Will plan to repeat the upper endoscopy in February 4. Try to get at least 2 doses of the Carafate in, please dissolve tablet in small amount water thendrink 5. Follow up in 1 month 6. Se diet instructions below, avoiding spicy, fatty foods, alcohol and eating close to bedtime Patient Education Ulcer and Gastritis Diet About this topic Ulcers and gastritis are stomach problems that cause pain or burning in your belly. This diet is made up of foods that are not likely to upset your stomach or bowels. What will the results be? Food cannot cause you to have an ulcer, but they can make your signs worse or slow your healing. Thefood on this diet may help your belly pain. What changes to diet are needed? Eat small meals more often during the day. Try to eat more fruits, vegetables, and whole grains. These will help you get more fiber and nutrients, like vitamin C, that may help with healing. Stay away from spicy or seasoned foods. These may make your signs worse. Eat slowly and chew your food carefully. Do not eat for at least 2 hours before going to bed. Who should use this diet? People with ulcers, heartburn, or gastritis should eat this diet. What foods are good to eat? Low-fat milk, yogurt, and other dairy products Dark leafy greens like spinach and kale Vegetables like carrots, broccoli, and sweet potatoes Fruits like apples, strawberries, and blueberries Whole grain breads, crackers, pasta, and oatmeal Lean, tender meats that are steamed, baked, or grilled with no added fat Creamy peanut butter, eggs, and tofu Low-fat ice cream and sherbet What foods should be limited or avoided? You do not need to avoid acidic foods like tomatoes, oranges, pickles, sauerkraut, or hot chilies, but these foods may cause more belly pain or burning. If you have pain after eating a certain food, avoid that food. Fatty dairy foods Spices that may cause pain or burning like black pepper, red pepper, and chili powder Caffeine and drinks like cola, tea, and coffee Decaffeinated coffee and tea Fatty and fried foods Chocolate Beer, wine, and mixed drinks (alcohol) It is not necessary to avoid acidic foods, but eating these foods may cause discomfort. If you have pain after eating a certain food, avoid that food. When do I need to call the doctor? Bloody, dark red, or black stools Throw up that has blood in it or looks like coffee grounds Belly pain that keeps you from eating Helpful tips Stop smoking. Smoking increases your stomach acid and can make you more likely to develop an ulcer. Do not use drugs like ibuprofen (Advil, Motrin) for swelling and pain. These are non-steroidal anti-inflammatory drugs (NSAIDS). Talk to your doctor about other drugs like acetaminophen (Tylenol) to ease your pain. Last Reviewed Date 2019-07-12 Consumer Information Use and Disclaimer This information is not specific medical advice and does not replace information you receive from your health care provider. This is only a brief summary of general information. It does NOT include allinformation about conditions, illnesses, injuries, tests, procedures, treatments, therapies, discharge instructions or life-style choices that may apply to you. You must talk with your health care provider for complete information about your health and treatment options. This information should not beused to decide whether or not to accept your health care providers advice, instructions or recommendations. Only your health care provider has the knowledge and training to provide advice that isright for you. Copyright Copyright 2019 [employer] and its affiliates and/or licensors. All rights reserved. Author: Arlene Soliman NP 10/02/2019 11:09 documented in this encounter Plan of Treatment Date Type Specialty Care Team Description 10/30/2019 Office Visit Gastroenterology Arlene Soliman NP [address] [place] [address] [phone] Name Type Priority Associated Diagnoses Order Schedule REFER TO GI Referral Routine Gastroesophageal reflux Expected: disease with esophagitis 10/02/2019, Expires: Intestinal metaplasia of 10/02/2020 gastric mucosa EGD (FLOOD / NON Referral Routine Gastroesophageal reflux Expected: FLOOD) disease with esophagitis 10/02/2019, Expires: Intestinal metaplasia of 10/02/2020 gastric mucosa Health Maintenance Due Date Last Done Comments MAMMOGRAM (SCREENING) 12/02/2016 12/03/2015 PAP SMEAR 10/13/2017 10/13/2014 (Previously completed) INFLUENZA VACCINE (#1) 2019 07/13/2013 DIABETES SCREENING 12/19/2019 12/18/2018, 06/23/2015 DEPRESSION SCREENING 06/01/2020 06/01/2019 DTaP/Tdap/Td Vaccines (2 - 07/13/2022 07/13/2012 Tdap) LIPID DISORDER SCREENING 10/26/2023 10/26/2018 HEPATITIS A IMMUNIZATION Aged Out No longer eligible based SERIES on patient's age to complete this topic HPV IMMUNIZATION SERIES Aged Out No longer eligible based on patient's age to complete this topic MENINGOCOCCAL VACCINE IMM Aged Out No longer eligible based on patient's age to complete this topic PNEUMOCOCCAL 0-64 YRS Aged Out No longer eligible based on patient's age to complete this topic documented as of this encounter Results Not on filedocumented in this encounter Visit Diagnoses Diagnosis Gastroesophageal reflux disease with esophagitis Intestinal metaplasia of gastric mucosa Other specified disorder of stomach and duodenum documented in this encounter Insurance Payer Benefit Plan / Subscriber ID Effective Dates Phone Address Type Group [place] [employer] xxxxxxxxxxxx 2017-Present [employer] (Work) documented as of this encounter"
--- OUTSIDE RECORDS SUMMARY | 2019-11-18 10:09 | XMS REPORT | Summary of Care ---
:1975 Author Organization [facility] Address [address] [facility] [place] [address] Care Team Providers Name Role Phone ThangCon Primary Care Provider Reason for Visit Reason Comments Follow-up 1-month follow-up on GERD. Encounter Details Date Type Department Care Team Description 10/30/2019 Office Visit Sina Soliman Gastroesophageal reflux Gastroenterology/ Arlene Doss NP disease with esophagitis patology 1 [facility] (Primary Dx) [address] [facility] [place] [address] [place] [address] [phone] Allergies Active Allergy Reactions Severity Noted Date Comments Ct Dye Anaphylaxis High 12/15/2018 Environmental Respiratory Reaction 02/11/2014 Sneezing, watery eyes Fsqvudiqko-Gaicmxdekw-Drh GI Reaction 12/31/2013 pylpara documented as of this encounter (statuses as of 10/30/2019) Medications Medication Sig Dispensed Refills Start Date [...] Vomiting Nausea/Vomitin g. Indications: Nausea and Vomiting quetiapine Take 200 mg by 0 Active (SEROQUEL) 200 MG mouth EVERY Oral Tab BEDTIME. levothyroxine TAKE 1 TABLET 90 Tab 1 05/08/2019 Active (SYNTHROID) 88 MCG BEFORE Oral BREAKFAST TabIndications: (NEED LABS Pituitary tumor, DONE) Thyroid disorder Omeprazole 40 MG Take 1 Cap by 30 Cap 3 10/02/2019 Active Oral CAPSULE mouth DAILY. DELAYED RELEASE HYDROcodone-acetam Take 1 Tab by 30 Tab 0 10/02/2019 Active inophen (NORCO) mouth EVERY 5-325 MG Oral SIX HOURS TabIndications: NEEDED (pain). Pain Max Daily Amount: 3 Tabs. Indications: Pain sucralfate Take 1 Tab by 60 Tab 1 04/12/2019 Discontinued (CARAFATE) 1 GM mouth THREE 0 (Patient stopped Oral Tab TIMES DAILY. 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, last visit to endocrinology in 2011, formerly on bromocriptine Mood disorder 12/31/2013 Overview: bipolar disorder, Lamictal since 2009 Thyroid disorder 12/31/2013 Overview: family history, on thyroid replacement since 2007 documented as of this encounter (statuses as of 10/30/2019) Immunizations Name Administration Dates Next Due Influenza (IM) Preservative Free 07/13/2013 TDAP Vaccine 07/13/2012 documented as of this encounter Social History Tobacco Use Types Packs/Day Years Used Date Never Smoker Smokeless Tobacco: Never Used Alcohol Use Drinks/Week oz/Week Comments No 0 Standard drinks or equivalent 0.0 Sex Assigned at Date Recorded Not on file documented as of this encounter Last Filed Vital Signs Vital Sign Reading Time Taken Comments Blood Pressure 120/72 10/30/2019 8:55 AM EST Pulse 72 10/30/2019 8:55 AM EST Temperature 36.9 10/30/2019 8:55 AM EST C (98.5 F) Respiratory Rate - - Oxygen Saturation - - Inhaled Oxygen Concentration - - Weight 102.1 kg (225 lb) 10/30/2019 8:55 AM EST Height 182.9 cm (6') 10/30/2019 8:55 AM EST Body Mass Index 30.52 10/30/2019 8:55 AM EST documented in this encounter Patient Instructions Patient InstructionsArlene Soliman NP - 10/30/2019 9:00 AM EST1. Continue current treatment plan 2. Repeat upper endoscopy in February 12. Follow up as needed Thank you for choosing the [facility] for your needs today! -Arlene Soliman N.P. , Please call if you need to cancel or change your appt. time. Thank you for choosing [facility] for your health care needs, and for consulting with [facility] today. You may receive a survey following this visit, or after an upcoming hospital stay. As easy as it is to feel overloaded with surveys, we are required to send them out randomly and they do provide important feedback so that we may serve your needs in the best way. Please do take the few minutes required to complete the survey if you receive one. We get them too, after seeing the doctor, and they only take a few minutes to complete. documented in this encounter Progress Notes Arlene Soliman NP - 10/30/2019 9:00 AM EST PATIENT: Cinthia Gutierrez : 1975 DATE OF SERVICE: 10/30/2019 REFERRING PRACTITIONER: Con Desir PRIMARY CARE PROVIDER: Con Desir CHIEF COMPLAINT: Chief Complaint Patient presents with ? Follow-up 1-month follow-up on GERD. Subjective HISTORY OF PRESENT ILLNESS: Cinthia Gutierrez is an 44-y.o. female who presents for a follow-up visit with gastroesophageal reflux. Previous visits for this problem: yes, last seen by me. Medical therapy has included proton pump inhibitors. Current treatment: compliant all of the time. Treatment has been effective. Side effects: none. Lifestyle change compliance: compliant all of the time. Patient relates she feels the condition is currently: well controlled. Current symptoms: none. She denies dysphagia. She has not lost weight. She denies melena, hematochezia, hematemesis, and coffee ground emesis. Current Outpatient Medications Medication Sig ? ALPRAZolam (XANAX) 0.5 MG Oral Tab Take 0.5 mg by mouth EVERY BEDTIME NEEDED for anxiety.Dr. Zamudio ? HYDROcodone-acetaminophen (NORCO) 5-325 MG Oral Tab Take 1 Tab by mouth EVERY SIX HOURS NEEDED (pain). Max Daily Amount: 3 Tabs. Indications: Pain ? LamoTRIgine (LAMICTAL XR) 250 MG Oral TABLET SR 24 HR Take 250 mg by mouth DAILY. Dr. Zamudio in Syr ? levothyroxine (SYNTHROID) 88 MCG Oral Tab TAKE 1 TABLET BEFORE BREAKFAST (NEED LABS DONE) ? Omeprazole 40 MG Oral CAPSULE DELAYED RELEASE Take 1 Cap by mouth DAILY. ? ondansetron (ZOFRAN) 4 MG Oral Tab Take 4 mg by mouth EVERY EIGHT HOURS NEEDED for Nausea/Vomiting. Indications: Nausea and Vomiting ? quetiapine (SEROQUEL) 200 MG Oral Tab Take 200 mg by mouth EVERY BEDTIME. No current facility-administered medications for this visit. Allergies Allergen Reactions ? Contrast [Ct Dye] Anaphylaxis ? Environmental Respiratory Reaction Sneezing, watery eyes ? Nalbuphine Hcl [Lrmhwyxklo-Prrvtjcicw-Bnsvimlmnb] GI Reaction REVIEW OF SYSTEMS: All remaining review of systems was negative except for as noted in the history of present illness/subjective. Objective OBJECTIVE: VITALS: BP 120/72 | Pulse 72 | Temp 98.5 F (36.9 C) | Ht 6' (1.829 m ) | Wt 225 lb (102.1 kg) | BMI 30.52 kg/m Body mass index is 30.52 kg/m . GENERAL: alert, oriented, no acute distress. HEENT: No scleral icterus, MMM Psych: Affect normal Neck: no lymphadenopathy LUNGS: clear to auscultation bilaterally. HEART: regular rhythm, no murmurs, no gallops, no rubs. ABDOMEN: general exam: soft, non-tender, non-distended, without masses or organomegaly, normal active bowel sounds, Jimenez's sign negative. Extrmities: no edema Skin: clear Neuro: gait normal, a&o x 3 RECTAL: exam deferred. IMPRESSION: ICD-9-CM ICD-10-CM 1. Gastroesophageal reflux disease with esophagitis 530.11 K21.0 Gastroesophageal reflux disease, improved. Plan PLAN: Patient Instructions 1. Continue current treatment plan 2. Repeat upper endoscopy in February 12. Follow up as needed Thank you for choosing the [facility] for your needs today! -Arlene Soliman N.P. , Please call if you need to cancel or change your appt. time. Thank you for choosing [facility] for your health care needs, and for consulting with [facility] today. You may receive a survey following this visit, or after an upcoming hospital stay. As easy as it is to feel overloaded with surveys, we are required to send them out randomly and they do provide important feedback so that we may serve your needs in the best way. Please do take the few minutes required to complete the survey if you receive one. We get them too, after seeing the doctor, and they only take a few minutes to complete. Author: Arlene Soliman NP 10/30/2019 09:26 documented in this encounter Plan of Treatment Health Maintenance Due Date Last Done Comments [...] Diagnoses Diagnosis Gastroesophageal reflux disease with esophagitis documented in this encounter Insurance Payer Benefit Plan / Subscriber ID Effective Dates Phone Address Type Group [employer] [id number] 2017-Present [employer] (Home) [place] [id number] [place] [address] (Work) documented as of this encounter"
--- OUTSIDE RECORDS SUMMARY | 2019-11-18 10:09 | XMS REPORT | Continuity of Care Document ---
:1975 External Reference #:[id number] Author Name Himanshu Freeman MD (transmitted by agent of provider Glen Collazo) Address [address] [place] [address] Care Team Providers Name Role Phone Con Desir MD - Family Medicine Care Team Information Source Inspector Problems Active Problems Provider Date Unspecified injury of flexor muscle, fascia and Himanshu Freeman MD Onset: 03/2018 tendon of right middle finger at wrist and hand level, initial encounter Social History Type Date Description Comments Sex Unknown Tobacco Use Start: Unknown Never Smoked Cigarettes ETOH Use Never used alcohol Tobacco Use Start: Unknown End: Patient is a former smoker Quit-1997 Unknown Smoking Status Reviewed: 09/21/19 Patient is a former smoker Quit-1997 Exercise Type/Frequency Exercises regularly Allergies, Adverse Reactions, Alerts Active Allergies Reaction Severity Comments Date Nalbuphine Excessive vomiting 05/19/2018 Environmental-[facility] 05/19/[address] IV Contrast Anaphylasis 01/12/2019 Medications Active Medications SIG Qnty Indications Ordering Provider Date Tramadol HCL 1-2 tablets by 30tabs Himanshu Freeman, 01/25/2019 50mg Tablets mouth every 6 MD hours as needed pain Levothyroxine Sodium 1 by mouth every Unknown day 88mcg Tablets Lamictal 1 by mouth at Unknown 200mg Tablets bedtime Ambien takes 1 tablet Unknown 10mg Tablets by mouth at bedime Seroquel 1 tab by mouth Unknown 200mg Tablets every night at bedtime Acetaminophen 2 by mouth as Unknown 500mg needed Tablets Xanax 1 by mouth every Unknown 0.5mg Tablets 8 hours as needed for extreme anxiety Protonix 1 by mouth every Unknown 20mg Tablets DR day Carafate 1 by mouth three Unknown 1gm Tablets times a day Immunizations Description No Information Available Vital Signs Date Vital Result Comment 09/21/2019 3:08pm Height 71 inches 5'11" Weight 200.00 lb Heart Rate 64 /min BP Systolic 136 mmHg BP Diastolic 84 mmHg Pain Level 0 BMI (Body Mass Index) 27.9 kg/m2 02/06/2019 10:05am Height 71 inches 5'11" Heart Rate 83 /min BP Systolic 128 mmHg BP Diastolic 82 mmHg Respiratory Rate 18 /min Body Temperature 98.0 F Pain Level 0 Results Description No Information Available Procedures Description No Information Available Medical Devices Description No Information Available Encounters Description No Information Available Assessments Description No Information Available Plan of Treatment No Information Available Functional Status Description No Information Available Mental Status Description No Information Available Referrals Description No Information Available
[2019-11-18 10:25] VITALS: BP 127/82
--- NOTE | 2019-11-18 10:38 | UC ---
Respiratory Complaint HPI - HPI Summary HPI Summary: 44-year-old female who has had head congestion for greater than one week and today she now has sinus pressure, postnasal drainage and greenish yellow nasal coryza. - History of Current Complaint Chief Complaint: UCRespiratory Stated Complaint: SORE THROAT COUGH CONGESTION Time Seen by Provider: 11/18/19 10:23 Hx Obtained From: Patient Hx Last Menstrual Period: uterine ablation ?: No Onset/Duration: Gradual Onset Timing: Constant Severity Initially: Mild Severity Currently: Moderate Pain Intensity: 7 Character: Cough: Nonproductive Aggravating Factors: Nothing Alleviating Factors: Nothing Associated Signs And Symptoms: Positive: URI, Nasal Congestion, Sinus Discomfort - Allergies/Home Medications Allergies/Adverse Reactions: Allergies Allergy/AdvReac Type Severity Reaction Status Date / Time nalbuphine [From Nubain] AdvReac Severe Vomiting Verified 11/18/19 10:22 ct contrast Allergy Severe Anaphylatic Uncoded 11/18/19 10:22 Shock ENVIROMENTAL Allergy Intermediate SNEEZING, Uncoded 11/18/19 10:22 WATERY EYES. Home Medications: Home Medications ALPRAZolam [Xanax] 0.5 mg PO TID PRN 05/04/16 [History Confirmed 11/18/19] Levothyroxine Sodium [Synthroid] 88 mcg PO QAM 05/04/16 [History Confirmed 11/17] QUEtiapine TAB* [Seroquel 100 MG *] 200 mg PO BEDTIME 05/04/16 [History Confirmed 11/18/19] Zolpidem TAB* [Ambien*] 10 mg PO BEDTIME 05/04/16 [History Confirmed 11/18/19] Acetaminophen [Acetaminophen Extra Strength] 1,000 mg PO TID PRN 12/05/18 [ History Confirmed 11/18/19] lamoTRIgine TAB(*) [Lamictal TAB(*)] 200 mg PO BEDTIME 12/05/18 [History Confirmed 11/18/19] Methocarbamol TAB* [Robaxin 500 MG TAB*] 500 mg PO TID PRN 5 Days #15 tab [Rx Confirmed 11/18/19] Amoxicillin/Clavulanate TAB* [Augmentin TAB 875*] 875 mg PO BID 10 Days #20 tab 11/18/19 [Rx] PMH/Surg Hx/FS Hx/Imm Hx Previously Healthy: Yes Endocrine History: Thyroid Disease Respiratory History: Asthma GI/ History: Gastroesophageal Reflux - Surgical History Surgical History: Yes Surgery Procedure, Year, and Place: . ganglion cyst on wrist. septoplasty 2018. tonsillectomy 1992. R middle finger x2 - Family History Known Family History: Positive: Hypertension, Respiratory Disease - COPD (father ), Other - Prostate CA (father), malignant melanoma (sister) - Social History Occupation: Employed Full-time Lives: With Family Alcohol Use: None Substance Use Type: None Smoking Status (MU): Former Smoker When Did the Patient Quit Smoking/Using Tobacco: 10 years ago Review of Systems All Other Systems Reviewed And Are Negative: Yes ENT: Positive: Nasal Discharge, Sinus Congestion, Sinus Pain/Tenderness Respiratory: Positive: Cough - Occasional nonproductive cough. Is Patient Immunocompromised?: No Physical Exam Triage Information Reviewed: Yes Appearance: Well-Appearing, No Pain Distress, Well-Nourished Vital Signs: Initial Vital Signs Temp 98.9 F 11/18/19 10:20 Pulse 84 11/18/19 10:20 Resp 18 11/18/19 10:20 BP 127/82 11/18/19 10:20 Pulse Ox 99 11/18/19 10:20 Vital Signs Reviewed: Yes Eyes: Positive: Conjunctiva Clear ENT: Positive: Pharynx normal - Yellow postnasal drainage, Nasal congestion, Nasal drainage - Yellow nasal coryza, TMs normal, Sinus tenderness - Tenderness on palpation over the maxillary sinuses bilaterally., Uvula midline Neck: Positive: Supple, Nontender, No Lymphadenopathy Respiratory: Positive: Lungs clear, Normal breath sounds, No respiratory distress, No accessory muscle use Cardiovascular: Positive: RRR, No Murmur, Pulses Normal, Brisk Capillary Refill Musculoskeletal Exam: Normal Neurological Exam: Normal Psychological Exam: Normal Skin Exam: Normal Respiratory Course/Dx - Course Course Of Treatment: The patient is comfortable here and nontoxic. - Differential Dx/Diagnosis Provider Diagnosis: Sinusitis Discharge ED - Sign-Out/Discharge Documenting (check all that apply): Patient Departure All imaging exams completed and their final reports reviewed: No Studies - Discharge Plan Condition: Good Disposition: HOME Prescriptions: Amoxicillin/Clavulanate TAB* [Augmentin TAB 875*] 875 mg PO BID 10 Days #20 tab Patient Education Materials: Sinusitis (ED) Forms: *Work Release Referrals: Con Desir MD [Primary Care Provider] - Additional Instructions: Increase fluids, take your Augmentin with food. Follow-up with your primary care provider if no improvement in 4-5 days. - Billing Disposition and Condition Condition: GOOD Disposition: Home
== END 2019-11-18 10:53 | disposition home or self-care (01) ==
LOC: UCCORT 09:53
DX: J32.9 Chronic sinusitis, unspecified (principal); J45.909 Unspecified asthma, uncomplicated; E07.89 Other specified disorders of thyroid; Z88.5 Allergy status to narcotic agent; Z91.041 Radiographic dye allergy status; Z91.09 Other allergy status, other than to drugs and biological substances; Z79.890 Hormone replacement therapy; Z87.891 Personal history of nicotine dependence
CPT/HCPCS: 99212; G0463